=== PATIENT | female | born 1945 | race Caucasian/White ===

== ENCOUNTER 2019-03-06 17:48 | Inpatient (IN) | payer MEDICARE, BC ==
[2019-03-06] MEDS ORDERED: MAXZIDE 75/501 TAB PO (18:07)
[2019-03-06] MEDS ORDERED: ZANTAC300 MG PO (18:07)
[2019-03-06] MEDS ORDERED: INDOCIN25 MG PO (18:08)
[2019-03-06 19:05] LABS: BASOPHILS 0.3 % (0-2); HEMATOCRIT 34.4 % (36.0-48.0); HEMOGLOBIN 11.4 g/dL (12-16); IMMATURE GRANULOCYTES 0.7 % (0-5); LYMPHOCYTES 25.4 % (15-50); MCH 30.2 pg (26.0-34.0); MCHC 33.1 g/dL (31.0-37.0); MEAN PLATELET VOLUME 10.9 fL (7.4-10.4); MONOCYTES 8.7 % (2-11); NEUTROPHILS 63.9 % (40-80); PLATELET COUNT 358 10x3/uL (130-400); RBC 3.78 10x6/uL (4.00-5.40); RDW 13.1 % (11.5-14.5); WBC 10.2 10x3/uL (4.8-10.8)
[2019-03-06 19:06] LABS: APPEARANCE CLEAR (CLEAR); COLOR YELLOW (YELLOW); NITRITE NEGATIVE (NEGATIVE)
[2019-03-06 19:07] LABS: BILIRUBIN NEGATIVE (NEGATIVE); GLUCOSE NEGATIVE (NEGATIVE); KETONE NEGATIVE (NEGATIVE); PROTEIN NEGATIVE (NEGATIVE); UROBILINOGEN NORMAL (NORMAL)
[2019-03-06 19:15] LABS: ALBUMIN 3.3 g/dL (3.4-5.0); ANION GAP 15.2 mmol/L (8-16); BILIRUBIN - TOTAL 0.41 mg/dL (0.2-1.3); CALCIUM 9.6 mg/dL (8.5-10.1); CARBON DIOXIDE 25.8 mmol/L (21.0-32.0); CREATININE - SERUM 4.9 mg/dL (0.6-1.3); PROTEIN - SERUM 9.2 g/dL (6.4-8.2)
[2019-03-06 19:27] LABS: MAGNESIUM - SERUM 1.8 mg/dL (1.8-2.4); THYROID STIMULATING HORMONE 2.88 uIU/mL (0.36-3.74); TROPONIN-I 0.035 ng/mL (0.000-0.060)
--- NOTE | 2019-03-06 21:43 | NUR ---
ns stop time is [id number]
[2019-03-06 22:34] VITALS: BP 136/70; BMI 33.6
[2019-03-06 22:40] VITALS: BP 103/60
[2019-03-07 04:00] VITALS: BP 136/72
[2019-03-07 04:35] LABS: BASOPHILS 0.2 % (0-2); EOSINOPHILS 0.9 % (0-7); HEMATOCRIT 29.6 % (36.0-48.0); HEMOGLOBIN 9.6 g/dL (12-16); IMMATURE GRANULOCYTES 0.6 % (0-5); LYMPHOCYTES 31.1 % (15-50); MCH 29.9 pg (26.0-34.0); MCHC 32.4 g/dL (31.0-37.0); MCV 92.2 fL (80.0-100.0); MEAN PLATELET VOLUME 10.3 fL (7.4-10.4); MONOCYTES 7.1 % (2-11); NEUTROPHILS 60.1 % (40-80); PLATELET COUNT 337 10x3/uL (130-400); RBC 3.21 10x6/uL (4.00-5.40); RDW 13.1 % (11.5-14.5); WBC 9.8 10x3/uL (4.8-10.8)
[2019-03-07 04:51] LABS: ALBUMIN 2.8 g/dL (3.4-5.0); BILIRUBIN - TOTAL 0.32 mg/dL (0.2-1.3); CARBON DIOXIDE 25.4 mmol/L (21.0-32.0); CREATININE - SERUM 4.7 mg/dL (0.6-1.3); PROTEIN - SERUM 7.4 g/dL (6.4-8.2)
[2019-03-07 05:02] LABS: ANION GAP 14.7 mmol/L (8-16); POTASSIUM - SERUM 4.1 mmol/L (3.5-5.1)
--- NOTE | 2019-03-07 07:30 | NUR ---
ASSESSMENT COMPLETE. IV TO R FA PATENT. NS INFUSING AT 125 CC/HR VIA PUMP.
--- NOTE | 2019-03-07 07:41 | NUR ---
ZOFRAN GIVEN SLOW IVP FOR NAUSEA.
[2019-03-07 07:50] VITALS: BP 140/62
[2019-03-07 10:46] LABS: AMYLASE - SERUM 125 U/L (25-115); LIPASE 209 U/L (73-393)
[2019-03-07 11:30] VITALS: BP 128/70
[2019-03-07 11:54] LABS: ERYTHROCYTE SEDIMENTATION RATE 86 mm/hr (0-30)
--- NOTE | 2019-03-07 12:00 | NUR ---
NO CHANGES NOTED AT THIS TIME.
[2019-03-07 12:14] VITALS: BMI 33.6
[2019-03-07 15:39] VITALS: BP 136/67
[2019-03-07 15:52] VITALS: BMI 33.6
[2019-03-07 17:05] LABS: % SATURATION 19 % (15-55); IRON 50 ug/dl (35-150); TOTAL IRON BIND CAPACITY 262 ug/dl (260-445); UNSAT IRON BIND CAPACITY 212 ug/dl (150-375)
[2019-03-07 17:23] LABS: APPEARANCE CLEAR (CLEAR); COLOR STRAW (YELLOW)
[2019-03-07 17:24] LABS: BILIRUBIN NEGATIVE (NEGATIVE); GLUCOSE NEGATIVE (NEGATIVE); KETONE NEGATIVE (NEGATIVE); NITRITE NEGATIVE (NEGATIVE); PROTEIN NEGATIVE (NEGATIVE); UROBILINOGEN NORMAL (NORMAL)
[2019-03-07 17:29] LABS: PRO/CRE RATIO URINE 0.2 mg/g; PROTEIN - URINE 13.4 mg/dL (0.0-11.9)
[2019-03-07 17:36] LABS: THYROID STIMULATING HORMONE 2.16 uIU/mL (0.36-3.74)
--- NOTE | 2019-03-07 18:10 | NUR ---
VISITING WITH FAMILY. DENIES ANY NEEDS AT THIS TIME.
--- NOTE | 2019-03-07 19:49 | NUR ---
RESUMIKNF CARE, PT LAYINE IN BE A&O X4 BREATH SOUNDS EVEN UNLABORED ON RA, IV IN RT FA NS AT 125 FAMILY AT BEDSIDE NO C/O PAIN OR DISTRESS AT THIS TIME CL IN REACH WILL CONT TO NIELS
[2019-03-07 20:00] VITALS: BP 146/68
[2019-03-08] VITALS: BP 139/69
--- NOTE | 2019-03-08 02:23 | NUR ---
I have reviewed this patient and I concur with the Shift Assessment completed by the Licensed Practical Nurse today this shift.
[2019-03-08 05:22] LABS: BASOPHILS 0.2 % (0-2); EOSINOPHILS 1.8 % (0-7); HEMATOCRIT 28.2 % (36.0-48.0); HEMOGLOBIN 9.1 g/dL (12-16); IMMATURE GRANULOCYTES 0.8 % (0-5); LYMPHOCYTES 27.7 % (15-50); MCH 29.8 pg (26.0-34.0); MCHC 32.3 g/dL (31.0-37.0); MCV 92.5 fL (80.0-100.0); MEAN PLATELET VOLUME 10.3 fL (7.4-10.4); MONOCYTES 8.4 % (2-11); NEUTROPHILS 61.1 % (40-80); PLATELET COUNT 316 10x3/uL (130-400); RBC 3.05 10x6/uL (4.00-5.40); RDW 13.1 % (11.5-14.5); WBC 9.1 10x3/uL (4.8-10.8)
[2019-03-08 05:35] LABS: ALBUMIN 2.6 g/dL (3.4-5.0); ANION GAP 14.5 mmol/L (8-16); BILIRUBIN - TOTAL 0.1 mg/dL (0.2-1.3); CALCIUM 8.4 mg/dL (8.5-10.1); CARBON DIOXIDE 23.2 mmol/L (21.0-32.0); CHOL - HDL RATIO 5.3 ratio (2.3-4.1); CREATININE - SERUM 4.3 mg/dL (0.6-1.3); LDL-HDL RATIO 3.1 ratio (1.5-3.5); PHOSPHOROUS 3.9 mg/dL (2.5-4.9); POTASSIUM - SERUM 3.7 mmol/L (3.5-5.1); PROTEIN - SERUM 6.9 g/dL (6.4-8.2); URIC ACID 9.1 mg/dL (2.6-7.2)
--- NOTE | 2019-03-08 07:44 | NUR ---
PT AWAKE AND ORIENTED LYING IN BED. NO COMPLAINTS/QESTIONS/CONCERNS VOICED AT THI STIME. FAMILY ASLEEP IN RECLINER AT BEDSIDE. CL IN REACH, SRX2.
[2019-03-08 09:38] VITALS: BP 117/49
[2019-03-08 12:43] VITALS: BP 127/56
--- NOTE | 2019-03-08 14:26 | NUR ---
Nutrition follow-up: Diet: Renal PO intake 100% of meals Labs reviewed RDN following.
--- NOTE | 2019-03-08 15:12 | NUR ---
I have reviewed this patient and I concur with the Shift Assessment completed by the Licensed Practical Nurse today this shift.
[2019-03-08 17:08] LABS: SPE - A/G RATIO 0.8 (0.7-1.7); SPE - ALBUMIN 3.2 g/dL (2.9-4.4); SPE - ALPHA-1 GLOBULIN 0.3 g/dL (0.0-0.4); SPE - ALPHA-2 GLOBULIN 1.1 g/dL (0.4-1.0); SPE - BETA GLOBULIN 1.2 g/dL (0.7-1.3); SPE - GAMMA GLOBULIN 1.5 g/dL (0.4-1.8); SPE - M-SPIKE Not Observed g/dL (Not Observed); SPE - TOTAL PROTEIN 7.4 g/dL (6.0-8.5)
--- NOTE | 2019-03-08 17:56 | MORECARE ---
CASE MANAGEMENT DISCHARGE SUMMARY PATIENT: WM GERONIMO UNIT: [id number] ADM DATE: 03/06/19 AGE: 73 : 43 SEX: F ROOM/BED: D.210 AUTHOR: DUDLEY,DOC PHYSICIAN: REFERRING PHYSICIAN: MARGRET ALEXANDER MD DATE OF SERVICE: 03/08/19 Discharge Plan Patient Name: WM GERONIMO Facility: [facility]:[place] : 1945 Planned Disposition: Home Anticipated Discharge Date: Discharge Date: Expected LOS: Initial Reviewer: [email or web address] Initial Review Date: 03/06/2019 Generated: 03/08/19 6:56 pm Comments DCP- Discharge Planning Updated by [email or web address]: Estiven Alanis on 03/08/19 4:[address] Patient Name: WM GERONIMO Admission Status: ER Accout number: [id number] Admission Date: 03-06-2019 : 1945 Admission Diagnosis: Attending: MARGRET ALEXANDER Current LOS: 2 Anticipated DC Date: Planned Disposition: Home Primary Insurance: MEDICARE A & B Discharge Planning Comments: CM MET WITH PT AND DAUGHTER IN ROOM TO DISCUSS DISCHARGE PLANNING AND NEEDS. WM GERONIMO provided verbal consent to discuss current and ongoing needs with/in the presence of: DAUGHTERPAWAN. PT REPORTS LIVING AT HOME INDEPENDENTLY AND ALONE. PT HAS NO MEDICAL EQUIPMENT AND NO OUTSIDE SERVICES ASSISTING IN THE HOME. CM DISCUSSED AVAILABILITY OF HOME HEALTH, REHAB SERVICES AND MEDICAL EQUIPMENT. PT DENIES DISCHARGE NEEDS, REPORTS HER DAUGHTER WILL PICK HER UP FOR DISCHARGE HOME. IMPORTANT MESSAGE FROM MEDICARE PROVIDED AND EXPLAINED. Forestry Engineer: Estiven Alanis DCPIA - Discharge Planning Initial Assessment Updated by [email or web address]: Estiven Alanis on 03/08/19 5:54 pm * Is the patient Alert and Oriented? Yes * How many steps to enter\exit or inside your home? 0-O / 1-I * PCP DR. LUCA WALLACE * Pharmacy [facility] IN [place] * Preadmission Environment Home Alone * ADLs Independent * Equipment None * Other Equipment NO MEDICAL EQUIPMENT PROVIDER PREFERENCE * List name and contact numbers for known caregivers / representatives who currently or will assist patient after discharge: SHIMA WALDEN, BROTHER, PAWAN HOLT, DTR, * Verbal permission to speak to the caregivers and representatives has been obtained from the patient. Yes * Community resources currently utilized None * Please name any agencies selected above. NONE * Additional services required to return to the preadmission environment? No * Can the patient safely return to the preadmission environment? Yes * Has this patient been hospitalized within the prior 30 days at any hospital? No Patient Name: WM GERONIMO Page [id number] at 1756 All edits/amendments must be made on the electronic document DICTATION DATE: 03/08/191755 INFANT LEAD TEACHER: ASIYA 03/08/191755 RPT#: [id number] DC DATE: STATUS: ADM IN [facility] [address] [place] [address] END OF REPORT
[2019-03-08 17:57] VITALS: BP 118/57
--- NOTE | 2019-03-08 18:50 | NUR ---
PT HAS FAMILY AT [facility]. VERY COMFORTABLE, NO COMPLAINTS/CONCERNS VOICED AT THIS TIME. CL IN REACH, SRX2.
--- NOTE | 2019-03-08 19:39 | NUR ---
EVENING ROUNDS COMPLETED. REPORT RECEIVED. PT SITTING UP IN BED WITH EYES OPEN, RR EVEN AND UNLABORED. NO S/S OF DISTRESS NOTED. RIGHT FOREARM PIV INFUSING NORMAL SALINE ORDERED. FAMILY AT BEDSIDE. INTRODUCED SELF TO PT. PROVIDED 500 MLS OF APPLIE JUICE PER PT REQUEST. FAMILY AT BEDSIDE. CALL LIGHT IN REACH. WILL CTM.
[2019-03-08 20:00] VITALS: BP 147/67
--- NOTE | 2019-03-08 22:33 | NUR ---
I have reviewed this patient and I concur with the Shift Assessment completed by the Licensed Practical Nurse today this shift.
--- NOTE | 2019-03-08 23:59 | NUR ---
RECIEVED REPORT FROM CATIE Rasheed. RECIEVED PT RESTING IN BED WITH EYES CLOSED. NO S/S PF DISTRESS OBSERVED. DTR AT BEDSIDE. EASILY AROUSES WITH VERBAL STIMULI. C/O NOT HAVING A BM TODAY AND STATES SHE HAS ONE EVERY DAY. EXPLAINED THAT I WOULD REPORT TO DAYSHIFT AND WHEN MD CAME IN TOMORROW MENTION THIS TO HIM. PT GAVE VERBAL UNDERSTANDING. IV T O RIGHT FA WITH NS AT 125/HR. ALERT AND ORIENTED AND UP AD EARL. DENIES ANY OTHER NEEDS AT THIS TIME.
[2019-03-09] VITALS: BP 135/66
[2019-03-09 03:18] LABS: BASOPHILS 0.2 % (0-2); HEMATOCRIT 28.6 % (36.0-48.0); HEMOGLOBIN 9.4 g/dL (12-16); IMMATURE GRANULOCYTES 0.8 % (0-5); LYMPHOCYTES 31.3 % (15-50); MCH 30.6 pg (26.0-34.0); MCHC 32.9 g/dL (31.0-37.0); MCV 93.2 fL (80.0-100.0); MEAN PLATELET VOLUME 10.3 fL (7.4-10.4); MONOCYTES 7.4 % (2-11); NEUTROPHILS 58.3 % (40-80); PLATELET COUNT 299 10x3/uL (130-400); RBC 3.07 10x6/uL (4.00-5.40); RDW 13.1 % (11.5-14.5); WBC 10.1 10x3/uL (4.8-10.8)
[2019-03-09 03:30] LABS: ALBUMIN 2.5 g/dL (3.4-5.0); ANION GAP 15.8 mmol/L (8-16); BILIRUBIN - TOTAL 0.2 mg/dL (0.2-1.3); CALCIUM 8.5 mg/dL (8.5-10.1); CARBON DIOXIDE 22.4 mmol/L (21.0-32.0); CREATININE - SERUM 3.8 mg/dL (0.6-1.3); POTASSIUM - SERUM 4.2 mmol/L (3.5-5.1); PROTEIN - SERUM 6.8 g/dL (6.4-8.2)
[2019-03-09 04:00] VITALS: BP 109/71
--- NOTE | 2019-03-09 07:38 | NUR ---
PT ASLEEP, DID NOT WAKE I ENTERED, DID NOT FURTHER DISTURB AT THIS TIME. CL IN REACH, SRX2. FAMILY AT BEDSIDE (ALSO ASLEEP)
[2019-03-09 08:12] LABS: ANTI-STREPTOLYSIN O <20.0 IU/mL (0.0-200.0)
[2019-03-09 08:54] VITALS: BP 124/71
[2019-03-09 10:10] LABS: HEPATITIS C ANTIBODY 0.1 (0.0-0.9)
--- NOTE | 2019-03-09 10:25 | NUR ---
I have reviewed this patient and I concur with the Shift Assessment completed by the Licensed Practical Nurse today this shift.
[2019-03-09 11:41] VITALS: BP 126/68
[2019-03-09 16:41] VITALS: BP 133/71
--- NOTE | 2019-03-09 17:10 | NUR ---
PT LYING IN BED, AWAKE AND ORIENTED. SISTER AT BEDSIDE. NO COMPLAINTS/QUESTIONS/CONCERNS VOICED AT THIS TIME. CL IN REACH, SRX2.
--- NOTE | 2019-03-09 19:36 | NUR ---
EVENING ROUNDS COMPLETED. REPORT RECEIVED. PT SITTING UP IN BED WITH EYES OPEN, RR EVEN AND UNLABORED. RIGHT FOREARM INFUSING NORMAL SALINE ORDERED. BED IN LOW POSITION. NO S/S OF DISTRESS NOTED. INTRODUCED SELF TO PT. PROVIDED WARM BLANKET PER PT REQUEST. FAMILY MEMBER AT BEDSIDE. CALL LIGHT IN REACH. WILL CTM.
[2019-03-09 20:00] VITALS: BP 126/58
[2019-03-10] VITALS: BP 117/57
[2019-03-10 03:42] LABS: BASOPHILS 0.3 % (0-2); EOSINOPHILS 1.9 % (0-7); HEMATOCRIT 27.9 % (36.0-48.0); HEMOGLOBIN 8.9 g/dL (12-16); IMMATURE GRANULOCYTES 0.5 % (0-5); MCH 29.8 pg (26.0-34.0); MCHC 31.9 g/dL (31.0-37.0); MCV 93.3 fL (80.0-100.0); MEAN PLATELET VOLUME 10.5 fL (7.4-10.4); MONOCYTES 7.1 % (2-11); NEUTROPHILS 61.2 % (40-80); PLATELET COUNT 293 10x3/uL (130-400); RBC 2.99 10x6/uL (4.00-5.40); RDW 12.9 % (11.5-14.5); WBC 9.8 10x3/uL (4.8-10.8)
[2019-03-10 03:55] LABS: ALBUMIN 2.5 g/dL (3.4-5.0); ANION GAP 14.1 mmol/L (8-16); BILIRUBIN - TOTAL 0.15 mg/dL (0.2-1.3); CALCIUM 8.2 mg/dL (8.5-10.1); CARBON DIOXIDE 22.1 mmol/L (21.0-32.0); CREATININE - SERUM 3.4 mg/dL (0.6-1.3); POTASSIUM - SERUM 4.2 mmol/L (3.5-5.1); PROTEIN - SERUM 6.5 g/dL (6.4-8.2)
[2019-03-10 04:00] VITALS: BP 120/56
--- NOTE | 2019-03-10 04:29 | NUR ---
I have reviewed this patient and I concur with the Shift Assessment completed by the Licensed Practical Nurse today this shift.
--- NOTE | 2019-03-10 07:00 | NUR ---
RECEIVED REPORT. ASSUMED CARE OF PATIENT. RESTING IN BED WITH EYES CLOSED, EASILY AROUSED. RESP EVEN AND UNLABORED. DENIES NEEDS AT THIS TIME. NO DISTRESS. CALL LIGHT WITHIN REACH.
[2019-03-10 07:57] VITALS: BP 117/78
--- NOTE | 2019-03-10 09:46 | NUR ---
APPLE JUICE PROVIDED ON REQUEST. DENIES PAIN. NO DISTRESS. CALL LIGHT WITHIN REACH.
--- NOTE | 2019-03-10 10:24 | NUR ---
IV FLUIDS DISCONNECTED AT THIS TIME THEY HAVE BEEN DISCONTINUED.
[2019-03-10 11:57] VITALS: BP 119/69
--- NOTE | 2019-03-10 14:00 | NUR ---
PATIENT RESTING IN BED. WARM BLANKET PROVIDED UPON REQUEST. CALL LIGHT WITHIN REACH. DENIES ANY OTHER NEEDS.
[2019-03-10 15:57] VITALS: BP 122/70
--- NOTE | 2019-03-10 17:45 | NUR ---
PATIENT LYING IN BED WITH ATTENTION TOWARD TELEVISION. PATIENT DENIED NEEDS AT THIS TIME. FEMALE VISITOR AT BEDSIDE. CALL LIGHT WITHIN REACH. NO DISTRESS.
--- NOTE | 2019-03-10 20:17 | NUR ---
RECIEVED LAYING IN BED WITH EYES CLOSED. HARD TO AROUSE. DOES NOT ANSWER QUESTIONS. WHEN ATTEMPTING TO ASSESS SKIN SHE YELLED OUT "STOP IT". ABRASION AND BRUISE TO RIGHT KNEE DIME SIZE. PT IS VERY VIEJAS AND EVEN SPOKE IN HER EAR WITH NO RESPONSE. IV TO LEFT WRIST WITH NS AT 25/HR. REMAINS BEDFAST AND FAVORS LEFT SIDE. INCONT OF B/B. REQUIRES TOTAL CARE.
[2019-03-10 20:35] VITALS: BP 118/48
[2019-03-11 01:13] VITALS: BP 154/71
[2019-03-11 03:54] LABS: BASOPHILS 0.2 % (0-2); HEMOGLOBIN 9.1 g/dL (12-16); IMMATURE GRANULOCYTES 0.5 % (0-5); LYMPHOCYTES 27.2 % (15-50); MCH 31.1 pg (26.0-34.0); MCHC 33.7 g/dL (31.0-37.0); MCV 92.2 fL (80.0-100.0); MEAN PLATELET VOLUME 10.1 fL (7.4-10.4); MONOCYTES 5.5 % (2-11); NEUTROPHILS 64.6 % (40-80); PLATELET COUNT 261 10x3/uL (130-400); RBC 2.93 10x6/uL (4.00-5.40); WBC 9.7 10x3/uL (4.8-10.8)
[2019-03-11 04:05] LABS: ALBUMIN 2.5 g/dL (3.4-5.0); ANION GAP 14.8 mmol/L (8-16); BILIRUBIN - TOTAL 0.2 mg/dL (0.2-1.3); CALCIUM 8.5 mg/dL (8.5-10.1); CARBON DIOXIDE 23.7 mmol/L (21.0-32.0); CREATININE - SERUM 2.9 mg/dL (0.6-1.3); PROTEIN - SERUM 6.8 g/dL (6.4-8.2)
[2019-03-11 04:06] LABS: POTASSIUM - SERUM 3.5 mmol/L (3.5-5.1)
[2019-03-11 05:26] VITALS: BP 121/52
[2019-03-11 08:16] VITALS: BP 134/60
[2019-03-11 11:36] VITALS: BP 140/75
--- NOTE | 2019-03-11 14:12 | NUR ---
PT 2OG RIGHT FOREARM IV DC'D WITH CATHETER TIP IN PLACE. DISCHARGE INSTRUCTIONS GIVEN TO PT. PT UNDERSTANDS TO FOLLOW UP WITH PCP IN WEEK. PT ESCORTED TO FRONT OF BUILDING BY MY SELF TO PRIVATE VEHICLE FOR D/C HOME.
--- NOTE | 2019-03-12 08:58 | MORECARE ---
CASE MANAGEMENT DISCHARGE SUMMARY PATIENT: WM GERONIMO UNIT: [id number] ADM DATE: 03/06/19 AGE: 73 : 43 SEX: F ROOM/BED: D.210 AUTHOR: DUDLEY,DOC PHYSICIAN: REFERRING PHYSICIAN: MARGRET ALEXANDER MD DATE OF SERVICE: 03/12/19 Discharge Plan Patient Name: WM GERONIMO Facility: [facility]:[place] : 1945 Planned Disposition: Home Anticipated Discharge Date: 03/11/19 Discharge Date: 03/11/2019 Expected LOS: 5 Initial Reviewer: [email or web address] Initial Review Date: 03/06/2019 Generated: 03/12/19 9:58 am Comments DCP- Discharge Planning Updated by [email or web address]: Estiven Alanis on 03/08/19 4:[address] Patient Name: WM GERONIMO Admission Status: ER Accout number: [id number] Admission Date: 03-06-2019 : 1945 Admission Diagnosis: Attending: MARGRET ALEXANDER Current LOS: 2 Anticipated DC Date: Planned Disposition: Home Primary Insurance: MEDICARE A & B Discharge Planning Comments: CM MET WITH PT AND DAUGHTER IN ROOM TO DISCUSS DISCHARGE PLANNING AND NEEDS. WM GERONIMO provided verbal consent to discuss current and ongoing needs with/in the presence of: DAUGHTERPAWAN. PT REPORTS LIVING AT HOME INDEPENDENTLY AND ALONE. PT HAS NO MEDICAL EQUIPMENT AND NO OUTSIDE SERVICES ASSISTING IN THE HOME. CM DISCUSSED AVAILABILITY OF HOME HEALTH, REHAB SERVICES AND MEDICAL EQUIPMENT. PT DENIES DISCHARGE NEEDS, REPORTS HER DAUGHTER WILL PICK HER UP FOR DISCHARGE HOME. IMPORTANT MESSAGE FROM MEDICARE PROVIDED AND EXPLAINED. Psych Sales Specialist: Estiven Alanis DCPIA - Discharge Planning Initial Assessment Updated by [email or web address]: Estiven Alanis on 03/08/19 5:54 pm * Is the patient Alert and Oriented? Yes * How many steps to enter\exit or inside your home? 0-O / 1-I * PCP DR. LUCA WALLACE * Pharmacy [facility] IN [place] * Preadmission Environment Home Alone * ADLs Independent * Equipment None * Other Equipment NO MEDICAL EQUIPMENT PROVIDER PREFERENCE * List name and contact numbers for known caregivers / representatives who currently or will assist patient after discharge: SHIMA AWLDEN, BROTHER, PAWAN HOLT, DTR, * Verbal permission to speak to the caregivers and representatives has been obtained from the patient. Yes * Community resources currently utilized None * Please name any agencies selected above. NONE * Additional services required to return to the preadmission environment? No * Can the patient safely return to the preadmission environment? Yes * Has this patient been hospitalized within the prior 30 days at any hospital? No Last DP export: 03/08/19 4:56 p Patient Name: WM EGRONIMO Page [phone] at 0858 All edits/amendments must be made on the electronic document DICTATION DATE: 03/12/19857 FIELD SERVICE TECHNICIAN: ASIYA 03/12/19 0858 RPT#: [id number] DC DATE:03/11/19 STATUS: DIS IN [facility] [address] [place] [address] END OF REPORT
[2019-03-12 11:10] LABS: ANA REFLEX - ANTICHROMATIN ABS 0.2 AI (0.0-0.9); ANA REFLEX - CENTROMERE B ABS >8.0 AI (0.0-0.9); ANA REFLEX - DBL STRANDED DNA <1 IU/mL (0-9); ANA REFLEX - DIRECT Positive (Negative); ANA REFLEX - JO-1 AB <0.2 AI (0.0-0.9); ANA REFLEX - RNP ANTIBODIES 0.5 AI (0.0-0.9); ANA REFLEX - SCL-70 <0.2 AI (0.0-0.9); ANA REFLEX - SJOGRENS AB SSA <0.2 AI (0.0-0.9); ANA REFLEX - SJOGRENS AB SSB <0.2 AI (0.0-0.9); ANA REFLEX - SMITH AB <0.2 AI (0.0-0.9)
[2019-03-15 13:14] LABS: ANCA - ANTIMYELOPEROXIDASE <9.0 U/mL (0.0-9.0); ANCA - ANTIPROTEINASE 3 <3.5 U/mL (0.0-3.5); ANCA - ATYPICAL <1:20 titer (Neg:<1:20); ANCA - CYTOPLASMIC <1:20 titer (Neg:<1:20); ANCA - PERINUCLEAR <1:20 titer (Neg:<1:20)
== END 2019-03-11 14:15 | disposition home or self-care (01) | DRG 684 ==
LOC: D.ER 17:48 → D.M2 18:44
PROVIDERS: Family Medicine; Internal Medicine Nephrology; ADMIT Internal Medicine Nephrology; ATTEND Internal Medicine Nephrology
DX: N17.9 Acute kidney failure, unspecified (principal); I10 Essential (primary) hypertension; D50.9 Iron deficiency anemia, unspecified; E03.9 Hypothyroidism, unspecified; E79.0 Hyperuricemia without signs of inflammatory arthritis and tophaceous disease; N28.1 Cyst of kidney, acquired